=== PATIENT | female | born 2000 | race Caucasian/White ===

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

== ENCOUNTER 2022-08-09 18:28 | Emergency (ER) | payer OTHER | END 2022-08-09 19:15 | disposition home or self-care (01) | LOC: ERS 18:28 | DX: G51.0 Bell's palsy (principal) | CPT/HCPCS: 99283 ==

== ENCOUNTER 2024-04-25 14:05 | Outpatient (CLI) | payer OTHER | END 2024-04-25 14:06 | disposition home or self-care (01) | LOC: ULT 14:05 | PROVIDERS: ATTEND Family Medicine | DX: Z34.82 Encounter for supervision of other normal pregnancy, second trimester (principal); Z3A.19 19 weeks gestation of pregnancy | CPT/HCPCS: 76805 ==